=== PATIENT | female | born 1970 | race American Indian/Alaskan Native ===

== ENCOUNTER 2017-06-21 14:31 | Emergency (ER) | payer MEDICARE, OTHER ==
[2017-06-21 14:44] VITALS: BP 117/87; PULSE 83; RESP 20; TEMP 98.1; O2SAT 100
[2017-06-21 15:58] LABS: RBC URINE 24 /hpf (0-3); URINE BACTERIA OCC (<OCC); URINE BILIRUBIN NEGATIVE (NEGATIVE); URINE BLOOD 2+ (NEGATIVE); URINE COLOR Yellow (YELLOW); URINE GLUCOSE (UA) NORMAL (Normal); URINE KETONE NEGATIVE (NEGATIVE); URINE LEUKOCYTE ESTERASE TRACE Leu/uL (Negative); URINE PROTEIN NEGATIVE (NEGATIVE); URINE UROBILINOGEN NORMAL mg/dL (0.2-1.0); WBC URINE 6 /hpf (0-5)
--- NOTE | 2017-06-21 16:56 | C.PDOC ---
History Of Present Illness Pt c/o vaginal discharge. Time Seen by Provider: 06/21/17 15:38 Chief Complaint (Nursing): Female Genitourinary History Per: Patient Onset/Duration Of Symptoms: Days (about 4 days) Current Symptoms Are (Timing): Still Present Severity: Moderate Quality Of Discomfort: Unable To Describe Associated Symptoms: Urinary Symptoms (?), Other (Vaginal discharge) Alleviating Factors: None Additional History Per: Prior Records Abnormal Vaginal Bleeding: No Past Medical History Reviewed: Historical Data, Nursing Documentation, Vital Signs Vital Signs: Last Vital Signs Temp 98.1 F 06/21/17 14:40 Pulse 83 06/21/17 14:40 Resp 20 06/21/17 14:40 BP 117/87 06/21/17 14:40 Pulse Ox 100 06/21/17 14:40 - Medical History PMH: HIV Family History: States: Unknown Family Hx - Social History Hx Tobacco Use: No Hx Alcohol Use: Yes Hx Substance Use: No - Immunization History Hx Tetanus Toxoid Vaccination: Yes Hx Influenza Vaccination: Yes Hx Pneumococcal Vaccination: Yes Review Of Systems Except As Marked, All Systems Reviewed And Found Negative. Constitutional: Negative for: Fever, Chills, Weakness Cardiovascular: Negative for: Chest Pain Respiratory: Negative for: Shortness of Breath Gastrointestinal: Negative for: Vomiting, Abdominal Pain, Diarrhea Genitourinary: Positive for: Frequency, Vaginal Discharge. Negative for: Dysuria Musculoskeletal: Negative for: Neck Pain, Back Pain Skin: Negative for: Rash Neurological: Negative for: Weakness, Numbness, Seizures Physical Exam - Physical Exam Appears: Non-toxic, No Acute Distress Skin: Normal Color, Warm, Dry, No Rash Head: Atraumatic, Normacephalic Eye(s): bilateral: Normal Inspection, PERRL, EOMI Neck: Normal ROM, Supple Cardiovascular: Rhythm Regular Respiratory: Normal Breath Sounds, No Accessory Muscle Use Gastrointestinal/Abdominal: Soft, No Tenderness Back: No CVA Tenderness Pelvic: No Vaginal Bleeding, Vaginal Discharge (white), No Cervical Motion Tenderness, No Adnexal Tenderness Extremity: Normal ROM Neurological/Psych: Oriented x3, Normal Motor, Normal Sensation ED Course And Treatment - Laboratory Results Urine POC: Negative O2 Sat by Pulse Oximetry: 100 Pulse Ox Interpretation: Normal Disposition Counseled Patient/Family Regarding: Studies Performed, Diagnosis, Need For Followup, Rx Given - Disposition Referrals: Martinez Chaves MD [Medical Doctor] - Disposition: HOME/ ROUTINE Disposition Time: 16:57 Condition: IMPROVED Additional Instructions: Follow up with your Project Designer within 1 week. Return to the ER if you develop fever, chills, abdominal or back pain, worsening of symptoms or if you have any other concerns. Prescriptions: Metronidazole [Flagyl] 500 mg PO BID #14 tablet Instructions: Vaginal Discharge (ED) - Clinical Impression Clinical Impression: Vaginosis
== END 2017-06-21 17:07 | disposition home or self-care (01) ==
LOC: C.ER 14:31
DX: N76.0 Acute vaginitis (principal)

== ENCOUNTER 2017-08-05 17:31 | Emergency (ER) | payer MEDICARE, OTHER ==
[2017-08-05 18:11] VITALS: BMI 27.1
[2017-08-05 18:19] VITALS: BP 123/86; PULSE 79; RESP 17; TEMP 98; O2SAT 100
[2017-08-05] MEDS ORDERED: Sodium Chloride 0.9% Inh Soln (3mL) UD INH STA (19:34)
--- NOTE | 2017-08-05 21:05 | C.PDOC ---
History Of Present Illness 47 year old non smoker female presents to the ED c/o cough associated with post tussive chest discomfort for approximately 1 week. Patient reports having pneumonia before and is concerned her current symptoms maybe associated. Patient denies fever, vomit, chills, SOB, nausea, abdominal pain, weakness, numbness. Time Seen by Provider: 08/05/17 19:01 Chief Complaint (Nursing): Cough, Cold, Congestion History Per: Patient History/Exam Limitations: no limitations Onset/Duration Of Symptoms: Days Current Symptoms Are (Timing): Gone Sick Contacts (Context): None Associated Symptoms: Cough. denies: Fever, Chills, Sputum, Sinus Drainage, Nasal Congestion, Vomiting, Diarrhea Ear Symptoms: Bilateral: None Recent travel outside of the [place]: No Additional History Per: Patient Past Medical History Reviewed: Historical Data, Nursing Documentation, Vital Signs Vital Signs: Last Vital Signs Temp 98.0 F 08/05/17 18:11 Pulse 79 08/05/17 18:11 Resp 17 08/05/17 18:11 BP 123/86 08/05/17 18:11 Pulse Ox 100 08/07/17 13:25 - Medical History PMH: Bronchitis, HIV, Pneumonia Surgical History: No Surg Hx Family History: States: Unknown Family Hx - Social History Hx Tobacco Use: No Hx Alcohol Use: Yes Hx Substance Use: No - Immunization History Hx Tetanus Toxoid Vaccination: Yes Hx Influenza Vaccination: Yes (2017) Hx Pneumococcal Vaccination: Yes (AT MD'S OFFICE) Review Of Systems Constitutional: Negative for: Fever, Chills Cardiovascular: Negative for: Chest Pain, Palpitations Respiratory: Positive for: Cough. Negative for: Shortness of Breath Gastrointestinal: Negative for: Nausea, Vomiting, Abdominal Pain, Diarrhea Genitourinary: Negative for: Incontinence Skin: Negative for: Rash Neurological: Negative for: Weakness, Numbness Physical Exam - Physical Exam Appears: Non-toxic, No Acute Distress Skin: Normal Color, Warm, Dry Head: Atraumatic, Normacephalic Eye(s): bilateral: Normal Inspection Nose: No Discharge, No Deformity Oral Mucosa: Moist, No Drooling Throat: Normal, No Erythema, No Exudate Neck: Normal ROM, Supple Chest: Symmetrical, No Deformity, No Tenderness Cardiovascular: Rhythm Regular, No Murmur Respiratory: Normal Breath Sounds, No Accessory Muscle Use, No Rales, No Rhonchi , No Wheezing Gastrointestinal/Abdominal: Soft, No Tenderness Extremity: Normal ROM, No Calf Tenderness, No Deformity, No Swelling Neurological/Psych: Oriented x3, Normal Speech, Normal Cognition Gait: Steady ED Course And Treatment ECG: Interpreted By Me, Viewed By Me ECG Rhythm: Sinus Rhythm ECG Interpretation: Normal, No Acute Changes Interpretation Of ECG: EKG 76 BPM normal axis, normal intervals, no acute ST o T wave changes Rate From EC O2 Sat by Pulse Oximetry: 100 (On RA) Pulse Ox Interpretation: Normal Medical Decision Making Medical Decision Making: Pt has no reproducible cp at this time, no SOB, pt declined CXR. pt feeling much better after saline nebulizer treatment. will d/c home wiht dx bronchitis. f/u pmd Disposition Counseled Patient/Family Regarding: Diagnosis, Need For Followup, Rx Given - Disposition Referrals: Martinez Chaves MD [Medical Doctor] - Disposition: HOME/ ROUTINE Disposition Time: 21:04 Condition: STABLE Additional Instructions: Please drink increased fluids, stay in hot steamy shower, may take Mucinex or Robitussen DM. Tylenol or Motrin for pain if needed. Follow up with your PMD. Return to ED for worse cough. shortness of breath, fever or chills, or any other concerning symptoms. 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 - Scribe Statement The provider has reviewed the documentation as recorded by the Scribe Eagle Harper All medical record entries made by the Scribe were at my direction and personally dictated by me. I have reviewed the chart and agree that the record accurately reflects my personal performance of the history, physical exam, medical decision making, and the department course for this patient. I have also personally directed, reviewed, and agree with the discharge instructions and disposition.
--- NOTE | 2017-08-07 10:28 | CARD ---
APPROVED REPORT EKG Measurement Heart [id number] <Conclusion> Normal sinus rhythm Low voltage QRS Borderline ECG
== END 2017-08-05 21:09 | disposition home or self-care (01) ==
LOC: C.ER 17:31
DX: J40 Bronchitis, not specified as acute or chronic (principal)